=== PATIENT | female | born 1995 | race Caucasian/White ===

== ENCOUNTER 2017-10-09 14:35 | Inpatient (IN) | payer BC ==
[2017-10-09] MEDS ORDERED: PITOCin/NS 30 UNIT/500ML 30,000 MILLIUNITS/500 ML BAG IV ONE (16:09)
[2017-10-09 16:31] LABS: Basophils % (Auto) 0.3 % (0.0-1.8); Eosinophils % (Auto) 0.4 % (0.0-4.3); Hematocrit 32.7 % (30.3-42.9); Hemoglobin 10.8 gm/dl (10.1-14.3); Mean Corpuscular HGB Conc 33 % (30-34); Mean Corpuscular Hemoglobin 26 pg (28-32); Mean Corpuscular Volume 79 fl (79-97); Platelet Count 184 K/mm3 (140-440); Red Blood Count 4.16 M/mm3 (3.65-5.03); Red Cell Distribution Width 14.3 % (13.2-15.2); White Blood Count 6.5 K/mm3 (4.5-11.0)
[2017-10-09] MEDS ORDERED: POLYCILLIN/NS 2 GM/100 ML 2 GM/100 ML BAG IV ONE (17:00)
[2017-10-09] MEDS ORDERED: LACTATED RINGERS 1,000 ML IV SCH (17:00)
[2017-10-09] MEDS ORDERED: LACTATED RINGERS 1,000 ML IV ONE (17:00)
[2017-10-09] MEDS ORDERED: PITOCin/NS 20 UNIT/1000ML DRIP 20 UNITS/1,000 ML BAG IV SCH ×2 (17:00→18:00)
[2017-10-09] MEDS ORDERED: XYLOCAINE 2% INFILTRATI ONE (17:13)
[2017-10-09] MEDS ORDERED: MINERAL OIL PO PRN (17:13)
[2017-10-09] MEDS ORDERED: PHENERGAN PO PRN (17:13)
[2017-10-09] MEDS ORDERED: SUBLIMAZE IV PRN (17:13)
[2017-10-09] MEDS ORDERED: NUBAIN IV PRN (17:13)
[2017-10-09] MEDS ORDERED: ePHEDrine SULFATE IV PRN (17:13)
[2017-10-09] MEDS ORDERED: ZOFRAN IV PRN (17:13)
[2017-10-09] MEDS ORDERED: BRETHINE IVP PRN (17:13)
[2017-10-09] MEDS ORDERED: BRETHINE SUB-Q PRN (17:13)
--- NOTE | 2017-10-09 17:13 | History and Physical Report ---
History of Present Illness Date of examination: 10/09/17 Date of admission: 10/09/17 14:35 Chief complaint: Ruptured membranes History of present illness: 21-year-old at ~ 38 weeks presents with ruptured membranes; she is a [facility] patient. 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 denies: smoking, alcohol abuse, prescription drug abuse, IV drug use - Obstetrical History Expected Date of Delivery: 10/19/17 Actual Gestation: 38 Week(s) 4 Day(s) : 1 Para: 0 Medications and Allergies Allergies Allergy/AdvReac Type Severity Reaction Status Date / Time No Known Allergies Allergy Unverified 10/09/17 14:35 Active Meds: Active Medications Butorphanol Tartrate (Stadol) 2 mg IV Q2H PRN PRN Reason: Labor Pain Lactated Ringer's (Lactated Ringers) 1,000 mls @ 999 mls/hr IV BOLUS ONE Stop: 10/09/17 18:00 Ampicillin Sodium (Polycillin/Ns 2 Gm/100 Ml) 2 gm in 100 mls @ 100 mls/hr IV ONCE ONE Stop: 10/09/17 17:59 Oxytocin/Sodium Chloride (Pitocin/Ns 20 Unit/1000ml Drip) 20 units in 1,000 mls @ 0 mls/hr IV DIRECT KVNG PRN Reason: As Directed Ampicillin Sodium (Polycillin/Ns 1 Gm/50 Ml) 1 gm in 50 mls @ 100 mls/hr IV Q4H KVNG PRN Reason: Protocol Lactated Ringer's (Lactated Ringers) 1,000 mls @ 125 mls/hr IV DIRECT KVNG Review of Systems Constitutional: no fever, no chills, no sweats, no fatigue, no weakness, no chronic headaches Cardiovascular: no chest pain, no orthopnea, no palpitations, no syncope, no lightheadedness, no shortness of breath, no dyspnea on exertion, no high blood pressure, no decreased exercise tolerance Respiratory: no cough, no cough with sputum, no shortness of breath, no dyspnea on exertion Gastrointestinal: no nausea, no vomiting, no heartburn Genitourinary: leakage of fluid, contractions, no vaginal bleeding, no vaginal discharge - Physical Exam Cardiovascular: Regular rate, Normal S1, Normal S2 Lungs: Positive: Clear to auscultation, Normal air movement Abdomen: Positive: normal appearance, soft. Negative: distention, tenderness, guarding, rigidity Genitourinary (Female): Positive: normal external genitalia Uterus: Positive: enlarged (EFW ~ 3500). Negative: tender Extremities: Positive: normal - Obstetrical FHR: category 1 Cervical Dilatation: 2 (Per RN) Results Result Diagrams: 10/09/17 15:05 Abnormal lab results 10/09/17 Range/Units 15:05 MCH 26 L (28-32) pg [place] % (Auto) 7.8 H (0.0-7.3) % Seg Neutrophils % 73.1 H (40.0-70.0) % All other labs normal. Assessment and Plan A: 21-year-old at 38 weeks with ruptured membranes -cat 1 tracing P: -Admit -Routine care -Epidural when necessary -GBS prophylaxis -Anticipate normal vaginal delivery - Patient Problems (1) 38 weeks gestation of Current Visit: Yes Status: Acute (2) Spontaneous rupture of amniotic membranes Current Visit: Yes Status: Acute
[2017-10-09] MEDS ORDERED: PITOCin/NS 30 UNIT/500ML 30 UNITS/500 ML BAG IV SCH ×2 (18:00)
[2017-10-09] MEDS: POLYCILLIN/NS 1 GM/50 ML 1 GM/50 ML BAG IV SCH (21:00)
[2017-10-09] MEDS ORDERED: POLYCILLIN/NS 1 GM/50 ML 1 GM/50 ML BAG IV SCH (21:14)
[2017-10-09] MEDS: LACTATED RINGERS 1,000 ML IV SCH (22:36)
[2017-10-09] MEDS: STADOL IV PRN (23:46)
[2017-10-10] MEDS: POLYCILLIN/NS 1 GM/50 ML 1 GM/50 ML BAG IV SCH ×2 (01:00→05:09)
[2017-10-10] MEDS: STADOL IV PRN (02:36)
[2017-10-10] MEDS ORDERED: ePHEDrine SULFATE ONE (03:47)
[2017-10-10] MEDS ORDERED: NARCAN 2 MG/2 ML IV PRN (04:18)
[2017-10-10] MEDS ORDERED: ePHEDrine SULFATE IV PRN (04:18)
--- NOTE | 2017-10-10 04:18 | Anesthesia Consultation ---
Anesthesia Consult and Med Hx Date of service: 10/10/17 - Airway Anesthetic Teeth Evaluation: Good ROM Head & Neck: Adequate Mental/Hyoid Distance: Adequate Mallampati Class: Class II Intubation Access Assessment: Probably Good - Pulmonary Exam CTA: Yes - Cardiac Exam Cardiac Exam: RRR - Pre-Operative Health Status ASA Pre-Surgery Classification: ASA2 Proposed Anesthetic Plan: Epidural, Spinal - Pulmonary Hx Asthma: No COPD: No Hx Pneumonia: No - Cardiovascular System Hx Hypertension: No - Central Nervous System Hx Seizures: No Hx Psychiatric Problems: No - Endocrine Hx Renal Disease: No Hx End Stage Renal Disease: No Hx Hypothyroidism: No Hx Hyperthyroidism: No - Hematic Hx Anemia: No Hx Sickle Cell Disease: No - Other Systems Hx Alcohol Use: No - Additional Comments Anesthesia Medical History Comments: IUP
--- NOTE | 2017-10-10 04:42 | Progress Note ---
Assessment and Plan - Patient Problems (1) 38 weeks gestation of Current Visit: Yes Status: Acute (2) Spontaneous rupture of amniotic membranes Current Visit: Yes Status: Acute Subjective - Subjective Date of service: 10/10/17 Interval history: Patient currently 9.5/100/-1 station Patient reports: new complaints, movement normal, contractions Objective - Vital Signs Vital Signs: Vital Signs - 12hr 10/09/17 10/09/17 10/09/17 19:18 19:23 23:46 Temperature 97.5 F L Pulse Rate 80 80 Respiratory 12 18 Rate Blood Pressure 100/61 Blood Pressure 100/60 [Left] O2 Sat by Pulse Oximetry 10/10/17 10/10/17 10/10/17 02:36 03:12 03:16 Temperature Pulse Rate 38 L 99 H Respiratory 14 Rate Blood Pressure Blood Pressure [Left] O2 Sat by Pulse 77 L 94 Oximetry 10/10/17 10/10/17 10/10/17 03:17 03:23 03:28 Temperature Pulse Rate 103 H 111 H 112 H Respiratory Rate Blood Pressure Blood Pressure [Left] O2 Sat by Pulse 95 94 91 Oximetry 10/10/17 10/10/17 10/10/17 03:29 03:33 03:34 Temperature Pulse Rate 107 H 111 H 101 H Respiratory Rate Blood Pressure Blood Pressure [Left] O2 Sat by Pulse 90 94 93 Oximetry 10/10/17 10/10/17 10/10/17 03:38 03:41 03:43 Temperature Pulse Rate 102 H 107 H 105 H Respiratory Rate Blood Pressure Blood Pressure [Left] O2 Sat by Pulse 93 87 100 Oximetry 10/10/17 10/10/17 10/10/17 03:46 03:48 03:51 Temperature Pulse Rate 98 H 95 H 50 L Respiratory Rate Blood Pressure Blood Pressure [Left] O2 Sat by Pulse 94 95 84 Oximetry 10/10/17 10/10/17 10/10/17 03:53 03:54 03:56 Temperature Pulse Rate 107 H 107 H 109 H Respiratory Rate Blood Pressure 124/70 109/71 Blood Pressure [Left] O2 Sat by Pulse 96 Oximetry 10/10/17 10/10/17 10/10/17 03:57 03:58 04:00 Temperature Pulse Rate 90 110 H 95 H Respiratory Rate Blood Pressure 137/81 123/78 Blood Pressure [Left] O2 Sat by Pulse 94 97 Oximetry 10/10/17 10/10/17 10/10/17 04:02 04:03 04:04 Temperature Pulse Rate 76 90 Respiratory Rate Blood Pressure 121/61 Blood Pressure [Left] O2 Sat by Pulse 81 L 82 L Oximetry 10/10/17 10/10/17 10/10/17 04:06 04:08 04:09 Temperature Pulse Rate 115 H 94 H 104 H Respiratory Rate Blood Pressure 118/70 135/73 Blood Pressure [Left] O2 Sat by Pulse 99 Oximetry 10/10/17 10/10/17 10/10/17 04:10 04:12 04:13 Temperature Pulse Rate 104 H 83 93 H Respiratory Rate Blood Pressure 113/69 120/74 Blood Pressure [Left] O2 Sat by Pulse 93 Oximetry 10/10/17 10/10/17 10/10/17 04:14 04:16 04:18 Temperature Pulse Rate 100 H 80 71 Respiratory Rate Blood Pressure 128/80 125/73 125/71 Blood Pressure [Left] O2 Sat by Pulse 67 L Oximetry 10/10/17 10/10/17 10/10/17 04:20 04:22 04:23 Temperature Pulse Rate 83 100 H 117 H Respiratory Rate Blood Pressure 111/62 107/60 Blood Pressure [Left] O2 Sat by Pulse 97 Oximetry 10/10/17 10/10/17 10/10/17 04:24 04:26 04:28 Temperature Pulse Rate 150 H 127 H 150 H Respiratory Rate Blood Pressure 88/50 93/51 84/49 Blood Pressure [Left] O2 Sat by Pulse 100 Oximetry 10/10/17 10/10/17 10/10/17 04:30 04:32 04:33 Temperature Pulse Rate 116 H 141 H 119 H Respiratory Rate Blood Pressure 96/62 94/67 Blood Pressure [Left] O2 Sat by Pulse 97 Oximetry 10/10/17 10/10/17 10/10/17 04:34 04:36 04:38 Temperature Pulse Rate 122 H 127 H 114 H Respiratory Rate Blood Pressure 125/73 118/70 120/71 Blood Pressure [Left] O2 Sat by Pulse 98 Oximetry 10/10/17 10/10/17 10/10/17 04:40 04:42 04:43 Temperature Pulse Rate 126 H 103 H 121 H Respiratory Rate Blood Pressure 121/73 117/76 Blood Pressure [Left] O2 Sat by Pulse 99 Oximetry - Exam FHR: category 1 Cervical Dilatation: 9.5 station: -1 - Labs Labs: Abnormal Labs 10/09/17 15:05 MCH 26 L [place] % (Auto) 7.8 H Seg Neutrophils % 73.1 H Laboratory Results - last 24 hr 10/09/17 10/09/17 15:05 15:05 WBC 6.5 RBC 4.16 Hgb 10.8 Hct 32.7 MCV 79 MCH 26 L MCHC 33 RDW 14.3 Plt Count 184 Lymph % (Auto) 18.4 [place] % (Auto) 7.8 H Eos % (Auto) 0.4 Baso % (Auto) 0.3 Lymph # 1.2 [place] # 0.5 Eos # 0.0 Baso # 0.0 Seg Neutrophils % 73.1 H Seg Neutrophils # 4.7 Blood Type O POSITIVE Antibody Screen Negative
[2017-10-10] MEDS: LACTATED RINGERS 1,000 ML IV SCH (04:50)
[2017-10-10] MEDS ORDERED: fentaNYL-BUPIV 2 MCG/ML-0.125% 200 MCG/100 ML BAG EPIDURAL SCH (05:00)
--- NOTE | 2017-10-10 05:28 | Progress Note ---
Assessment and Plan - Patient Problems (1) 38 weeks gestation of Current Visit: Yes Status: Acute (2) Spontaneous rupture of amniotic membranes Current Visit: Yes Status: Acute Subjective - Subjective Date of service: 10/10/17 Interval history: Patient now station Patient reports: new complaints, movement normal, contractions Objective - Vital Signs Vital Signs: Vital Signs - 12hr 10/09/17 10/09/17 10/09/17 19:18 19:23 23:46 Temperature 97.5 F L Pulse Rate 80 80 Respiratory 12 18 Rate Blood Pressure 100/61 Blood Pressure 100/60 [Left] O2 Sat by Pulse Oximetry 10/10/17 10/10/17 10/10/17 02:36 03:12 03:16 Temperature Pulse Rate 38 L 99 H Respiratory 14 Rate Blood Pressure Blood Pressure [Left] O2 Sat by Pulse 77 L 94 Oximetry 10/10/17 10/10/17 10/10/17 03:17 03:23 03:28 Temperature Pulse Rate 103 H 111 H 112 H Respiratory Rate Blood Pressure Blood Pressure [Left] O2 Sat by Pulse 95 94 91 Oximetry 10/10/17 10/10/17 10/10/17 03:29 03:33 03:34 Temperature Pulse Rate 107 H 111 H 101 H Respiratory Rate Blood Pressure Blood Pressure [Left] O2 Sat by Pulse 90 94 93 Oximetry 10/10/17 10/10/17 10/10/17 03:38 03:41 03:43 Temperature Pulse Rate 102 H 107 H 105 H Respiratory Rate Blood Pressure Blood Pressure [Left] O2 Sat by Pulse 93 87 100 Oximetry 10/10/17 10/10/17 10/10/17 03:46 03:48 03:51 Temperature Pulse Rate 98 H 95 H 50 L Respiratory Rate Blood Pressure Blood Pressure [Left] O2 Sat by Pulse 94 95 84 Oximetry 10/10/17 10/10/17 10/10/17 03:53 03:54 03:56 Temperature Pulse Rate 107 H 107 H 109 H Respiratory Rate Blood Pressure 124/70 109/71 Blood Pressure [Left] O2 Sat by Pulse 96 Oximetry 10/10/17 10/10/17 10/10/17 03:57 03:58 04:00 Temperature Pulse Rate 90 110 H 95 H Respiratory Rate Blood Pressure 137/81 123/78 Blood Pressure [Left] O2 Sat by Pulse 94 97 Oximetry 10/10/17 10/10/17 10/10/17 04:02 04:03 04:04 Temperature Pulse Rate 76 90 Respiratory Rate Blood Pressure 121/61 Blood Pressure [Left] O2 Sat by Pulse 81 L 82 L Oximetry 10/10/17 10/10/17 10/10/17 04:06 04:08 04:09 Temperature Pulse Rate 115 H 94 H 104 H Respiratory Rate Blood Pressure 118/70 135/73 Blood Pressure [Left] O2 Sat by Pulse 99 Oximetry 10/10/17 10/10/17 10/10/17 04:10 04:12 04:13 Temperature Pulse Rate 104 H 83 93 H Respiratory Rate Blood Pressure 113/69 120/74 Blood Pressure [Left] O2 Sat by Pulse 93 Oximetry 10/10/17 10/10/17 10/10/17 04:14 04:16 04:18 Temperature Pulse Rate 100 H 80 71 Respiratory Rate Blood Pressure 128/80 125/73 125/71 Blood Pressure [Left] O2 Sat by Pulse 67 L Oximetry 10/10/17 10/10/17 10/10/17 04:20 04:22 04:23 Temperature Pulse Rate 83 100 H 117 H Respiratory Rate Blood Pressure 111/62 107/60 Blood Pressure [Left] O2 Sat by Pulse 97 Oximetry 10/10/17 10/10/17 10/10/17 04:24 04:26 04:28 Temperature Pulse Rate 150 H 127 H 150 H Respiratory Rate Blood Pressure 88/50 93/51 84/49 Blood Pressure [Left] O2 Sat by Pulse 100 Oximetry 10/10/17 10/10/17 10/10/17 04:30 04:32 04:33 Temperature Pulse Rate 116 H 141 H 119 H Respiratory Rate Blood Pressure 96/62 94/67 Blood Pressure [Left] O2 Sat by Pulse 97 Oximetry 10/10/17 10/10/17 10/10/17 04:34 04:36 04:38 Temperature Pulse Rate 122 H 127 H 114 H Respiratory Rate Blood Pressure 125/73 118/70 120/71 Blood Pressure [Left] O2 Sat by Pulse 98 Oximetry 10/10/17 10/10/17 10/10/17 04:40 04:42 04:43 Temperature Pulse Rate 126 H 103 H 121 H Respiratory Rate Blood Pressure 121/73 117/76 Blood Pressure [Left] O2 Sat by Pulse 99 Oximetry 1110/10/17 10/10/17 04:44 04:46 04:48 Temperature Pulse Rate 112 H 112 H 113 H Respiratory Rate Blood Pressure 120/78 127/80 122/75 Blood Pressure [Left] O2 Sat by Pulse 100 Oximetry 10/10/17 10/10/17 10/10/17 04:50 04:52 04:53 Temperature Pulse Rate 109 H 100 H 98 H Respiratory Rate Blood Pressure 120/77 115/67 Blood Pressure [Left] O2 Sat by Pulse 100 Oximetry 10/10/17 10/10/17 10/10/17 04:58 05:03 05:08 Temperature Pulse Rate 100 H 100 H 112 H Respiratory Rate Blood Pressure Blood Pressure [Left] O2 Sat by Pulse 100 100 100 Oximetry 10/10/17 10/10/17 10/10/17 05:13 05:18 05:23 Temperature Pulse Rate 116 H 111 H 91 H Respiratory Rate Blood Pressure Blood Pressure [Left] O2 Sat by Pulse 100 100 99 Oximetry 10/10/17 10/10/17 05:24 05:28 Temperature Pulse Rate 98 H 89 Respiratory Rate Blood Pressure 109/66 Blood Pressure [Left] O2 Sat by Pulse 99 Oximetry - Exam FHR: category 1 Cervical Dilatation: 10 station: +1 - Labs Labs: Abnormal Labs 10/09/17 15:05 MCH 26 L [facility] % (Auto) 7.8 H Seg Neutrophils % 73.1 H Laboratory Results - last 24 hr 10/09/17 10/09/17 15:05 15:05 WBC 6.5 RBC 4.16 Hgb 10.8 Hct 32.7 MCV 79 MCH 26 L MCHC 33 RDW 14.3 Plt Count 184 Lymph % (Auto) 18.4 [facility] % (Auto) 7.8 H Eos % (Auto) 0.4 Baso % (Auto) 0.3 Lymph # 1.2 [facility] # 0.5 Eos # 0.0 Baso # 0.0 Seg Neutrophils % 73.1 H Seg Neutrophils # 4.7 Blood Type O POSITIVE Antibody Screen Negative
--- NOTE | 2017-10-10 07:37 | Event Note ---
Date: 10/10/17 Just assumed care of patient. Patient is completely dilated and head is at +1 station with small caput. FHR baseline 170-175 with minimal variability and variable FHR decelerations. Patient positioned in lateral position. O2 per face mask at 10 LPM and IV fluid bolus given. Patient is afebrile. No foul smelling discharge. Patient has received 4 doses of Ampicillin during this labor per RN report. Will allow patient to push to expedite delivery. Consulted with Dr. Anderson regarding patient and let her know about tachycardia, decreased variability and variable FHR decelerations. Dr. Anderson states to allow patient to push and she states she is on her way to the hospital to see the patient.
--- NOTE | 2017-10-10 08:59 | Procedure Note ---
OB Delivery Note - Vaginal Delivery presentation: vertex Delivery position: OA Intrapartum events: other(please specify) (mild tachycardia (resolved prior to delivery)) Delivery induction: none Delivery augmentation: pitocin Delivery monitor: external FHT, external uterine Route of delivery: Delivery placenta: spontaneous Delivery cord: nuchal cord Episiotomy: none Delivery laceration: none Anesthesia: epidural Delivery comments: Spontaneous vaginal delivery of liveborn female infant in OA position over intact perineum with apgars of 7 and 8. Baby's weight was 6 lbs. Baby delivered easily and was placed on maternal abdomen immediately after delivery. Spontaneous cry and respirations. 3 vessel cord double clamped and cut after cessation of pulsation. Baby taken to radiant warmer for suctioning and further stimulation. Spontaneous delivery of intact placenta and membranes by noel mechanism. EBL 250 ml. Pitocin to IV fluids after delivery of placenta. Fundus firm and midline. No lacerations noted. Vaginal sweep negative. Sponge count correct. Mother and baby stable in birthing room. Placenta to path.
[2017-10-10] MEDS ORDERED: LANSINOH TP PRN (09:00)
[2017-10-10] MEDS ORDERED: TUCKS PAD TP PRN (09:00)
[2017-10-10] MEDS ORDERED: SODIUM CHLORIDE FLUSH SYRINGE 10 ML IV PRN (09:30)
[2017-10-10] MEDS ORDERED: NORCO 5/325 PO PRN (09:30)
[2017-10-10] MEDS ORDERED: Fluarix Quad 2017-2018(36 MOS+ IM ONE (12:00)
[2017-10-10] MEDS: MOTRIN PO SCH ×2 (12:07→23:15)
[2017-10-10] MEDS ORDERED: DERMOPLAST TP PRN (12:30)
[2017-10-10] MEDS ORDERED: MILK OF MAGNESIA PO PRN (22:00)
[2017-10-11] MEDS ORDERED: BOOSTRIX IM ONE (06:00)
[2017-10-11] MEDS: MOTRIN PO SCH ×3 (06:05→18:33)
[2017-10-11 06:24] LABS: Hematocrit 23.9 % (30.3-42.9)
[2017-10-11] MEDS: FEOSOL PO SCH ×2 (08:27→15:12)
--- NOTE | 2017-10-11 09:46 | Progress Note ---
Subjective Date of service: 10/11/17 Interval history: Patient denies headache. No other anesthetic related complaints. Objective - Constitutional Vitals: Vital Signs - 12hr 10/11/17 00:00 Temperature 98.5 F Pulse Rate 76 Respiratory 18 Rate Blood Pressure 95/58 [Left] - Labs CBC & Chem 7: 10/11/17 05:54 Labs: Abnormal lab results 10/11/17 Range/Units 05:54 Hgb 8.0 L (10.1-14.3) gm/dl Hct 23.9 L D (30.3-42.9) %
[2017-10-11] MEDS ORDERED: Fluarix Quad 2017-2018(36 MOS+ IM ONE (12:20)
--- NOTE | 2017-10-11 15:21 | Progress Note ---
Assessment and Plan A: day 1 S/P spontaneous vaginal delivery. Anemia, not symptomatic. P: Supplement with Ferrous Sulfate for anemia. Anticipate discharge tomorrow afternoon when baby is able to go home. Subjective - Subjective Date of service: 10/11/17 Principal diagnosis: day 1 S/P spontaneous vaginal delivery Interval history: Doing well. Ambulating well and voiding without difficulty. Tolerating a regular diet without nausea and vomiting. Patient denies headache, dizziness, leg pain, abdominal pain, heavy vaginal bleeding, or any other symptoms. Patient reports: appetite normal, voiding normally, pain well controlled, ambulating normally [place]: doing well Objective - Vital Signs Latest vital signs: Vital Signs Temp Pulse Resp BP BP Pulse Ox 10/11/17 08:25 97.7 F 69 18 93/60 99 10/11/17 00:00 98.5 F 76 18 95/58 10/10/17 21:10 98.6 F 73 18 91/63 10/10/17 16:36 98.2 F 66 18 102/64 97 Intake and Output 10/10/17 10/11/17 10/11/17 23:59 07:59 15:59 Intake Total 240 240 Output Total 300 Balance -60 240 Intake: Oral 240 240 Output: Urine 300 Void 300 Other: Total, Intake Amount 240 120 Total, Output Amount 300 # Voids Void 1 1 - Exam Cardiovascular: Present: Regular rate, Normal S1, Normal S2 Lungs: Present: Clear to auscultation Abdomen: Present: normal appearance, soft. Absent: distention, tenderness, guarding, rigidity Uterus: Present: normal, firm, fundal height below umbilicus. Absent: tenderness Extremities: Present: normal. Absent: tenderness, edema - Labs Labs: Abnormal lab results 10/11/17 Range/Units 05:54 Hgb 8.0 L (10.1-14.3) gm/dl Hct 23.9 L D (30.3-42.9) %
--- NOTE | 2017-10-12 08:57 | Progress Note ---
Assessment and Plan A: day 2 S/P spontaneous vaginal delivery. Anemia. P: Discharge patient home today. Discussed with patient discharge instructions and warning signs. Advised patient to take iron supplement TID and to continue the vitamins she has at home. Rx Ferrous Sulfate and Motrin at [facility] pharmacy on [address]. Advised patient to avoid intercourse, avoid heavy lifting, and avoid driving. Discussed control with patient and options for control discussed. Patient states she will think about this and let us know at her 6 week visit. Advised patient to follow up in clinic in 6 weeks for exam and sooner if she has any problems. Subjective - Subjective Date of service: 10/12/17 Principal diagnosis: day 2 S/P spontaneous vaginal delivery Interval history: day 2 S/P spontaneous vaginal delivery. Patient is doing well and desires discharge today. Patient is . Patient is voiding without difficulty and ambulating well. She is tolerating a regular diet without nausea or vomiting. Patient is undecided regarding contraception; she states she will consider this and let us know at her 6 week check up. Patient denies headache, chest pain, cough, shortness of breath, abdominal pain, leg pain, or heavy vaginal bleeding. Patient reports: appetite normal, voiding normally, pain well controlled, ambulating normally [place]: doing well Objective - Vital Signs Latest vital signs: Vital Signs Temp Pulse Resp BP 10/12/17 00:25 98.3 F 72 18 98/55 10/11/17 16:00 98.6 F 78 16 102/60 Intake and Output 10/11/17 10/12/17 10/12/17 23:59 07:59 15:59 Intake Total 120 120 Balance 120 120 Intake: Oral 120 120 Other: Total, Intake Amount 120 120 # Voids Void 1 1 - Exam Cardiovascular: Present: Regular rate, Normal S1, Normal S2 Lungs: Present: Clear to auscultation Abdomen: Present: normal appearance. Absent: distention, tenderness, guarding, rigidity Uterus: Present: normal, firm, fundal height below umbilicus. Absent: bogginess , tenderness Extremities: Present: normal. Absent: tenderness, edema
--- NOTE | 2017-10-12 08:59 | Discharge Summary ---
Providers - Providers Date of Admission: 10/09/17 14:35 Date of discharge: 10/12/17 Attending physician: MARIA DEL ROSARIO ALCOCER MD None Primary care physician: MARIA DEL ROSARIO ALCOCER MD Hospitalization Reason for admission: rupture of membranes Delivery: Episiotomy: none Laceration: none Other procedures: none complications: none Discharge diagnosis: IUP at term delivered [place] baby: female Condition at discharge: Good Disposition: DC-01 TO HOME OR SELFCARE - Discharge Diagnoses (1) Term delivered Status: Acute Plan - Discharge Medications Prescriptions: HYDROcodone/APAP 5-325 [[place] 5/325] 1 each PO Q6HR PRN #7 tablet PRN Reason: Pain Ibuprofen [Motrin 600 MG tab] 600 mg PO Q8H PRN #30 tablet PRN Reason: Pain Multivitamin with Iron [Multivitamins with Iron] 1 each PO DAILY #30 tablet - Provider Discharge Summary Activity: routine, no sex for 6 weeks, no heavy lifting 4 weeks, no strenuous exercise Diet: routine Instructions: routine Additional instructions: Call your doctor immediately for: * Fever > 100.5 * Heavy vaginal bleeding ( >1 pad per hour) * Severe persistent headache * Shortness of breath * Reddened, hot, painful area to leg or breast - Follow up plan Follow up: MARIA DEL ROSARIO ALCOCER MD [Primary Care Provider] - 6 Weeks
[2017-10-12] MEDS: FEOSOL PO SCH (09:01)
[2017-10-12 12:21] VITALS: BP 130/81
[2017-10-12] MEDS: MOTRIN PO SCH (13:22)
== END 2017-10-12 13:30 | disposition home or self-care (01) | DRG 775 ==
LOC: LD 14:35 → OB 10-10 10:30
PROVIDERS: ADMIT Obstetrics & Gynecology; ATTEND Obstetrics & Gynecology
PROC: 10E0XZZ Delivery of Products of Conception, External Approach (ICD-10-PCS; principal; 2017-10-10)
PROC: 3E0R3BZ Introduction of Anesthetic Agent into Spinal Canal, Percutaneous Approach (ICD-10-PCS; 2017-10-10)
PROC: 00HU33Z Insertion of Infusion Device into Spinal Canal, Percutaneous Approach (ICD-10-PCS; 2017-10-10)
PROC: 3E0234Z Introduction of Serum, Toxoid and Vaccine into Muscle, Percutaneous Approach (ICD-10-PCS; 2017-10-10)
DX: O69.81X0 Labor and delivery complicated by cord around neck, without compression, not applicable or unspecified (principal); Z3A.38 38 weeks gestation of pregnancy; Z37.0 Single live birth; O76 Abnormality in fetal heart rate and rhythm complicating labor and delivery; Z23 Encounter for immunization; O99.824 Streptococcus B carrier state complicating childbirth; O90.81 Anemia of the puerperium; D64.9 Anemia, unspecified
CPT/HCPCS: 36415; 85014; 85018; 85025; 86592; 86850; 86900; 86901; 88307; 90471; 90686; 90715; 99211; G0463; J0290; J0595; J2300; J2590; J7120

== ENCOUNTER 2019-02-04 20:09 | Inpatient (IN) | payer OTHER ==
--- NOTE | 2019-02-04 23:06 | Ultrasound Report ---
PROCEDURE: US OB BPP WO NON-STRESS, US OB FOLLOW UP TECHNIQUE: Sonographic evaluation was performed of the pelvis for biophysical profile and well -being. HISTORY: well being, COMPARISONS: None. FINDINGS: A single, intrauterine is noted; position cephalic. Posterior placenta. Amniotic fluid volume: Amniotic fluid index estimated at 6.7 cm. growth: Biparietal diameter diameter: 8.7 cm; 36 week 2 day Head circumference: 32.7 cm; 37 week 1 day Abdominal circumference: 32.7 cm; 36 week 4 day Femoral length: 7.0 cm; 36 weeks 6 day Estimated weight: 2909 g +/- 431g Cephalic index 1.00 Ultrasound gestational age: 36 week 2 day. Estimated EDC: 03/02/2019. Biophysical profile: breathing movements: 2/2. movements: 2/2 posture and tone: 2/2 Qualitative amniotic fluid volume: 0 Total score for biophysical profile 6/8 heart rate: 143 bpm. IMPRESSION: 1. Biophysical profile 6/8. 2. Mildly decreased Amniotic fluid with estimated amniotic fluid index 6.7 cm (Normal range >7 cm). 3. Estimated weight: 2909 g +/- 431g. This document is electronically signed by Bharat Bennett DO., February 04 2019 11:03:14 PM ET
[2019-02-05] MEDS ORDERED: BRETHINE IVP PRN (01:16)
[2019-02-05] MEDS ORDERED: AMPICILLIN/NS 2 GM/100 ML 2 GM/100 ML BAG IV ONE (01:16)
[2019-02-05] MEDS ORDERED: ZOFRAN IV PRN ×2 (01:16→08:30)
[2019-02-05] MEDS ORDERED: NARCAN 0.4 MG/1 ML IV PRN (01:16)
[2019-02-05] MEDS ORDERED: BRETHINE SUB-Q PRN (01:16)
[2019-02-05] MEDS ORDERED: MINERAL OIL PO PRN (01:16)
[2019-02-05] MEDS ORDERED: PHENERGAN PO PRN ×2 (01:16→08:30)
[2019-02-05 01:19] LABS: Hematocrit 28.8 % (30.3-42.9); Hemoglobin 9.6 gm/dl (10.1-14.3); Mean Corpuscular HGB Conc 33 % (30-34); Mean Corpuscular Volume 78 fl (79-97); Platelet Count 177 K/mm3 (140-440); Red Cell Distribution Width 14.5 % (13.2-15.2)
--- NOTE | 2019-02-05 01:33 | History and Physical Report ---
History of Present Illness Date of examination: 02/05/19 Date of admission: 02/05/19 00:29 Chief complaint: Decreased FM and advanced dilatation (4-5cm); Sent from office History of present illness: 23yo KOBE 02/04/2019 ([place]) 40w0d, sent from [facility] for decreased FM and advanced dilatation (4-5cm). Pt initiated late care 15weeks 5days. She was prescribed Vit D and FeS04 325mg QD. She was evaluated for a arrhythmia which resolved. Otherwise her has been uncomplicated. labs: 0 positive, Rubella Immune, VDRl non-reactive, HIV Negative, HBsAg Negative, GC/CL/Trich negative, GBS positive. Past History Past Medical History: no pertinent history Past Surgical History: other (Breast Cyst removed from left breast) [employer]OTIVE TECHNICIAN History: denies: abnormal PAP smear, chlamydia, gonorrhea, hepatitis B, hepatitis C, herpes, HIV, syphilis, trichomonas Family/Genetic History: none Social history: no significant social history, single, lives with family, full code. denies: smoking, alcohol abuse, prescription drug abuse, IV drug use - Obstetrical History Expected Date of Delivery: 02/04/19 Actual Gestation: 40 Week(s) 1 Day(s) : 3 Para: 2 Hx # Term Pregnancies: 2 Number of Pregnancies: 0 Spontaneous Abortions: 0 Induced : 0 Number of Living Children: 2 Medications and Allergies Allergies Allergy/AdvReac Type Severity Reaction Status Date / Time No Known Allergies Allergy Verified 12/26/18 23:32 Home Medications Medication Instructions Recorded Confirmed Last Taken Type HYDROcodone/APAP 5-325 [[place] 1 each PO Q6HR PRN #7 tablet 10/10/17 Unknown Rx 5/325] Ibuprofen [Motrin 600 MG tab] 600 mg PO Q8H PRN #30 tablet 10/10/17 Unknown Rx Multivitamin with Iron 1 each PO DAILY #30 tablet 10/10/17 Unknown Rx [Multivitamins with Iron] Formula Tablet 1 tab PO QDAY MDD 1 10/10/17 10/10/17 10/07/17 08:00 History 1 Active Meds: Active Medications Ephedrine Sulfate (Ephedrine Sulfate) 10 mg IV Q2M PRN PRN Reason: Hypotension Fentanyl (Sublimaze) 100 mcg IV Q2H PRN PRN Reason: Labor Pain Ampicillin Sodium (Polycillin/Ns 2 Gm/100 Ml) 2 gm in 100 mls @ 100 mls/hr IV ONCE ONE; Protocol Stop: 02/05/19 02:15 Lactated Ringer's (Lactated Ringers) 1,000 mls @ 125 mls/hr IV DIRECT KVNG Lidocaine (Xylocaine 2%) 20 ml INFILTRATI ONCE ONE Stop: 02/05/19 01:17 Review of Systems Constitutional: other (denies) Cardiovascular: no chest pain, no shortness of breath Respiratory: no shortness of breath Breasts: normal Gastrointestinal: no abdominal pain, no nausea, no vomiting, no diarrhea, no constipation Genitourinary: normal appearance, no leakage of fluid, no pelvic pain, no xi bakari sores, no contractions Integumentary: no rash, no sores, no lesions Psychiatric: other (denies) Endocrine: other (denies) Hematologic/Lymphatic: other (Anemia; taking FeS04 325mg ) - Vital Signs Vital signs: Vital Signs Temp Pulse Resp BP 98.7 F 72 18 104/64 02/04/19 21:12 02/04/19 21:12 02/04/19 21:12 02/04/19 21:12 Temp Pulse Resp BP Pulse Ox 98.7 F 74 18 104/64 98 02/04/19 21:12 02/05/19 01:18 02/04/19 21:12 02/04/19 21:13 02/05/19 01:18 - Physical Exam Breasts: Positive: normal Cardiovascular: Regular rate, Normal S1, Normal S2, No murmurs Lungs: Positive: Clear to auscultation, Normal air movement Abdomen: Positive: normal appearance, soft, normal bowel sounds. Negative: distention Genitourinary (Female): Positive: normal external genitalia, normal perenium Vulva: both: normal Vagina: Positive: normal moisture Uterus: Positive: enlarged Anus/Rectum: Positive: normal perianal skin Extremities: Positive: normal Deep Tendon Reflex Grade: Normal +2 - Obstetrical FHR: category 1 Uterine Contraction Monitor Mode: External Cervical Dilatation: 6.5 (Buldging BOW) Cervical Effacement Percentage: 90 station: -2 Uterine Contraction Pattern: Regular Uterine Tone Measurement Phase: Resting Uterine Contraction Intensity: Mild Results Result Diagrams: 02/05/19 01:00 Abnormal lab results 03/08/19 Range/Units 01:00 Hgb 9.6 L (10.1-14.3) gm/dl Hct 28.8 L (30.3-42.9) % MCV 78 L (79-97) fl MCH 26 L (28-32) pg All other labs normal. Assessment and Plan A: Term IUP at 40w0d Oligohydramnios; SHANT 6.7 BPP 6/8 Catgory 1 tracing GBS positive P: Admit to L&D; Routine labor orders GBS prophylaxis IV pain med/epidural PRN Anticipate
[2019-02-05] MEDS ORDERED: XYLOCAINE 2% INFILTRATI ONE (01:46)
[2019-02-05] MEDS ORDERED: PITOCin/NS 30 UNIT/500ML 30 UNITS/500 ML BAG IV SCH (02:00)
[2019-02-05] MEDS ORDERED: PITOCin/NS 20 UNIT/1000ML DRIP 20 UNITS/1,000 ML BAG IV SCH (02:00)
[2019-02-05] MEDS: LACTATED RINGERS 1,000 ML IV SCH ×2 (02:34→05:45)
[2019-02-05] MEDS: SUBLIMAZE IV PRN ×2 (03:05→05:10)
--- NOTE | 2019-02-05 05:40 | Progress Note ---
Assessment and Plan A: Term IUP at 40w0d Catgory 1 tracing GBS positive SVE 10/100/0 Pt complete. Attempted pushing (moderate effort), no decent. Severe anxiety, which lead to panic attack and hyperventilation. Pt positioned to far right lateral. O2 applied via nonrebreather mask. Fentanyl 100mcg IVP. VSS throughout. P: Routine labor orders Pt to rest and labor down Epidural Anticiapte Subjective - Subjective Date of service: 02/05/19 Principal diagnosis: active labor Interval history: 23yo KOBE 02/04/2019 ([place]) 40w0d, [facility] from [facility] for decreased FM and advanced dilatation (4-5cm). Pt initiated late care 15weeks 5days. She was prescribed Vit D and FeS04 325mg QD. She was evaluated for a arrhythmia which resolved. Otherwise her has been uncomplicated. labs: 0 positive, Rubella Immune, VDRl non-reactive, HIV Negative, HBsAg Negative, GC/CL/Trich negative, GBS positive. Patient reports: vaginal bleeding, movement normal, contractions (pain 10/10) Objective - Vital Signs Vital Signs: Vital Signs - 12hr 02/04/19 02/04/19 02/05/19 21:12 21:13 00:48 Temperature 98.7 F Pulse Rate 72 72 78 Respiratory 18 Rate Blood Pressure 104/64 Blood Pressure 104/64 [Left] O2 Sat by Pulse 98 Oximetry 02/05/19 02/05/19 02/05/19 00:53 00:58 01:03 Temperature Pulse Rate 77 82 75 Respiratory Rate Blood Pressure Blood Pressure [Left] O2 Sat by Pulse 98 98 99 Oximetry 02/05/19 02/05/19 02/05/19 01:08 01:13 01:18 Temperature Pulse Rate 69 75 74 Respiratory Rate Blood Pressure Blood Pressure [Left] O2 Sat by Pulse 96 98 98 Oximetry 02/05/19 02/05/19 02/05/19 01:23 01:28 01:33 Temperature Pulse Rate 71 71 74 Respiratory Rate Blood Pressure Blood Pressure [Left] O2 Sat by Pulse 98 98 98 Oximetry 02/05/19 02/05/19 02/05/19 01:38 01:43 01:48 Temperature Pulse Rate 78 74 78 Respiratory Rate Blood Pressure Blood Pressure [Left] O2 Sat by Pulse 98 99 98 Oximetry 02/05/19 02/05/19 02/05/19 01:53 01:58 02:03 Temperature Pulse Rate 69 68 73 Respiratory Rate Blood Pressure Blood Pressure [Left] O2 Sat by Pulse 99 99 99 Oximetry 02/05/19 02/05/19 02/05/19 02:08 02:13 02:18 Temperature Pulse Rate 66 64 72 Respiratory Rate Blood Pressure Blood Pressure [Left] O2 Sat by Pulse 98 99 98 Oximetry 02/05/19 02/05/19 02/05/19 02:23 02:28 02:29 Temperature Pulse Rate 69 66 65 Respiratory Rate Blood Pressure 93/53 Blood Pressure [Left] O2 Sat by Pulse 98 98 Oximetry 02/05/19 02/05/19 02/05/19 02:33 02:38 02:39 Temperature 98.0 F Pulse Rate 70 66 64 Respiratory 18 Rate Blood Pressure Blood Pressure [Left] O2 Sat by Pulse 99 98 Oximetry 02/05/19 02/05/19 02/05/19 02:40 02:43 02:48 Temperature Pulse Rate 70 71 74 Respiratory Rate Blood Pressure 98/59 Blood Pressure [Left] O2 Sat by Pulse 97 98 Oximetry 02/05/19 02/05/19 02/05/19 03:05 03:30 04:29 Temperature Pulse Rate 72 86 Respiratory 22 Rate Blood Pressure 103/59 128/97 Blood Pressure [Left] O2 Sat by Pulse Oximetry 02/05/19 02/05/19 02/05/19 05:06 05:10 05:11 Temperature Pulse Rate 71 Respiratory 30 H Rate Blood Pressure Blood Pressure [Left] O2 Sat by Pulse 100 97 Oximetry 02/05/19 02/05/19 02/05/19 05:12 05:13 05:16 Temperature Pulse Rate 76 81 75 Respiratory Rate Blood Pressure 104/55 Blood Pressure [Left] O2 Sat by Pulse 94 100 Oximetry - Exam Breasts: normal Cardiovascular: Regular rate, Normal S1, Normal S2 Lungs: Clear to auscultation, Other (panic attack, hyperventilation) Abdomen: Present: normal appearance, soft Vulva: both: normal Uterus: Present: other (gravid) FHR: category 1 Uterine Contraction Monitor Mode: External Cervical Dilatation: 10 Cervical Effacement Percentage: 10 station: 0 Uterine Contraction Frequency (min): 2-3 Uterine Contraction Duration: 60-90 Uterine Contraction Pattern: Regular Uterine Tone Measurement Phase: Resting Uterine Contraction Intensity: Strong/Firm Extremities: normal Deep Tendon Reflex Grade: Normal +2 - Labs Labs: Abnormal Labs 02/05/19 01:00 Hgb 9.6 L Hct 28.8 L MCV 78 L MCH 26 L Laboratory Results - last 24 hr 02/05/19 02/05/19 00:18 01:00 WBC 7.0 RBC 3.70 Hgb 9.6 L Hct 28.8 L MCV 78 L MCH 26 L MCHC 33 RDW 14.5 Plt Count 177 Blood Type O POSITIVE Antibody Screen Negative
[2019-02-05] MEDS ORDERED: LIDOCAINE 1.5%/EPI 1:200,000 INFILTRATI ONE (06:15)
[2019-02-05] MEDS ORDERED: NARCAN 2 MG/2 ML IV PRN (06:35)
[2019-02-05] MEDS ORDERED: AMPICILLIN/NS 1 GM/50 ML 1 GM/50 ML BAG ONE (06:38)
[2019-02-05] MEDS ORDERED: fentaNYL-BUPIV 2 MCG/ML-0.125% 200 MCG/100 ML BAG EPIDURAL SCH (07:00)
[2019-02-05] MEDS ORDERED: AMPICILLIN/NS 1 GM/50 ML 1 GM/50 ML BAG IV SCH (07:00)
--- NOTE | 2019-02-05 08:19 | Procedure Note ---
OB Delivery Note - Delivery Date of Delivery: 02/05/19 (07:35) Surgeon: KENDAL COMBS (CNM) Estimated blood loss: 100cc - Vaginal Delivery presentation: vertex Delivery position: OA Intrapartum events: mult.variable deceleratio, other(please specify) (Anxiety attack, hyperventilation) Delivery induction: oxytocin Delivery augmentation: rupture of membranes Delivery monitor: external FHT, external uterine Route of delivery: (07:35) Delivery placenta: spontaneous (07:42) Delivery cord: 3 umbilical vessels Episiotomy: none Delivery laceration: none Anesthesia: intravenous, epidural (at 10/100/+1) Delivery comments: Pt pushed for over an hour with minimal change and descent. Proceeded to have anxiety attack with hyperventilation. Pt then positioned to far right lateral, oxygen via non-rebreather mask applied. Fentanyl 100Mcg IVP. Epidural placed and pt then comfortable. Nurse delivery of infant. To the room (from another delivery) as baby delivered. placed [id number] on mothers abdomen. Strong lusty cry. Delayed cord clamping then cut by FOB with my guidance. Cord blood per protocol. Spontaneous noel delivery of intact placenta. 3VC. No tears or lacerations. FF@U-2. Bleeding small. EBL 100cc. Infant and mother left in stable condition in L&D. - A at 1 minute: 8 at 5 minutes: 9 Gender: Male (7lbs 2 oz, 3232 grams, 19.5")
[2019-02-05] MEDS ORDERED: METHERGINE IM ONE (08:22)
[2019-02-05] MEDS ORDERED: TUCKS PAD TP PRN (08:30)
[2019-02-05] MEDS ORDERED: BENADRYL PO PRN (08:30)
[2019-02-05] MEDS ORDERED: TYLENOL PO PRN (08:30)
[2019-02-05] MEDS ORDERED: LANSINOH TP PRN (08:30)
[2019-02-05] MEDS ORDERED: NORCO 5/325 PO PRN (08:30)
[2019-02-05] MEDS ORDERED: SODIUM CHLORIDE FLUSH SYRINGE 10 ML IV PRN (09:00)
[2019-02-05] MEDS ORDERED: IBUPROFEN PO SCH (09:00)
[2019-02-05] MEDS ORDERED: MILK OF MAGNESIA PO PRN (09:00)
[2019-02-05] MEDS ORDERED: DULCOLAX PR PRN (10:00)
[2019-02-05 20:17] LABS: Hematocrit 27.1 % (30.3-42.9)
[2019-02-05] MEDS: IBUPROFEN PO SCH (23:22)
[2019-02-06] MEDS: IBUPROFEN PO SCH ×3 (05:21→17:30)
[2019-02-06] MEDS ORDERED: BOOSTRIX IM ONE (06:00)
--- NOTE | 2019-02-06 11:58 | Progress Note ---
Assessment and Plan A: day 1 S/P spontaneous vaginal delivery. Anemia secondary to and blood loss. P: Repeat H&H today. US to check for retained POC. Encouraged patient to get assistance when ambulating. Supplement with oral iron. Subjective - Subjective Date of service: 02/06/19 Principal diagnosis: day 1 S/P Interval history: day 1 S/P spontaneous vaginal delivery. Patient reports moderate to heavy lochia and states passing clots. Voiding without difficulty. Ambulating well but reports mild dizziness. Tolerating a regular diet. Minimal nausea, no vomiting. Patient denies headache, chest pain, cough, shortness of breath, leg pain, or abdominal pain. Patient reports: appetite normal, voiding normally, dizzy ambulation, pain well controlled, flatus, ambulating normally, nauseated : doing well Objective - Vital Signs Latest vital signs: Vital Signs Temp Pulse Resp BP BP Pulse Ox 02/06/19 10:00 98.6 F 70 20 86/60 02/05/19 23:51 98.1 F 68 14 105/70 98 02/05/19 20:46 98.5 F 70 16 101/70 99 02/05/19 16:24 98.9 F 70 18 100/64 96 Intake and Output 02/05/19 02/06/19 02/06/19 23:59 07:59 15:59 Intake Total 720 120 Balance 720 120 Intake: Oral 360 120 Intake, Free Water 360 Other: Total, Intake Amount 360 120 # Voids Void 3 2 - Exam Cardiovascular: Present: Regular rate, Normal S1, Normal S2 Lungs: Present: Clear to auscultation Abdomen: Present: normal appearance, soft. Absent: distention, tenderness, guarding, rigidity Uterus: Present: normal, firm, fundal height below umbilicus Extremities: Present: normal. Absent: tenderness, edema - Labs Labs: Abnormal lab results 02/05/19 Range/Units 19:43 Hgb 9.0 L (10.1-14.3) gm/dl Hct 27.1 L (30.3-42.9) %
[2019-02-06 12:23] LABS: Hematocrit 23.9 % (30.3-42.9)
--- NOTE | 2019-02-06 13:30 | Ultrasound Report ---
PROCEDURE: US PELVIC LIMITED TECHNIQUE: Transabdominal images of the uterus only were obtained HISTORY: bleeding; check for retained placenta COMPARISONS: None FINDINGS: Uterus measures 17.5 x 8.4 x 13.0 cm. The endometrium is heterogeneous and thickened up to 2.2 cm. No color Doppler flow is seen, however findings are suspicious for retained products of conception IMPRESSION: Thickened endometrium. Findings are suspicious for retained products of conception. This document is electronically signed by Di Caicedo MD., February 06 2019 01:28:42 PM ET
[2019-02-06] MEDS: FEOSOL PO SCH ×2 (14:00→22:29)
--- NOTE | 2019-02-06 16:34 | Event Note ---
Date: 02/06/19 US shows possible retained POC. Patient denies heavy bleeding at this time; dizziness has resolved. Fundus firm and midline. No clots. Methergine po ordered. Consulted with Dr. Hopson re: this patient and he states he agrees with PO Methergine. Will observe closely.
[2019-02-06] MEDS: METHERGINE PO SCH ×2 (17:30→22:29)
[2019-02-07] MEDS: IBUPROFEN PO SCH ×3 (00:46→23:52)
[2019-02-07] MEDS: METHERGINE PO SCH ×3 (05:34→19:00)
[2019-02-07] MEDS: FEOSOL PO SCH ×2 (11:08→21:47)
--- NOTE | 2019-02-07 12:16 | Progress Note ---
Assessment and Plan A: day 2 S/P spontaneous vaginal delivery. Possible retained POC per US; receiving PO Methergine series. Anemia secondary to and blood loss. P: Continue PO Methergine and iron supplementation. Plan to repeat US tomorrow afternoon. Subjective - Subjective Date of service: 02/07/19 Principal diagnosis: day 2 S/P Interval history: day 2 S/P spontaneous vaginal delivery. Patient reports lochia is moderate and she denies clots. She is receiving PO Methergine for possible retained POC. Patient denies dizziness, headache, chest pain, shortness of breath, leg pain, or any other problems. Patient is voiding without difficulty. She is ambulating well. She is tolerating a regular diet without nausea or vomiting. Patient reports: appetite normal, voiding normally, pain well controlled, flatus, ambulating normally, no dizzy ambulation, no nauseated [place]: doing well Objective - Vital Signs Latest vital signs: Vital Signs Temp Pulse Resp BP BP Pulse Ox 02/06/19 23:55 98.1 F 65 15 104/68 98 02/06/19 21:01 72 16 108/71 02/06/19 16:35 98.7 F 82 20 97/65 Intake and Output 02/06/19 02/07/19 02/07/19 22:59 07:59 15:59 Intake Total Output Total Balance Intake: Oral Output: Urine Void Other: Total, Intake Amount Total, Output Amount # Voids Void # Bowel Movements - Exam Cardiovascular: Present: Regular rate, Normal S1, Normal S2 Lungs: Present: Clear to auscultation Abdomen: Present: normal appearance, soft. Absent: distention, tenderness, guarding, rigidity Uterus: Present: normal, firm, fundal height at umbilicus Extremities: Present: normal. Absent: tenderness, edema - Labs Labs: Abnormal lab results 02/06/19 Range/Units 11:58 Hgb 8.0 L (10.1-14.3) gm/dl Hct 23.9 L (30.3-42.9) %
[2019-02-08] MEDS: METHERGINE PO SCH (02:05)
[2019-02-08] MEDS: IBUPROFEN PO SCH (06:44)
--- NOTE | 2019-02-08 14:21 | Progress Note ---
Assessment and Plan - Patient Problems (1) Status post normal vaginal delivery Current Visit: Yes Status: Acute Plan to address problem: PPD 3 - stable Continue routine PP orders Discharge to home later today if Possible Retained products of conception cleared on US (2) Anemia due to blood loss, acute Current Visit: Yes Status: Acute Plan to address problem: Asymptomatic Continue iron therapy (3) Retained products of conception after delivery without hemorrhage Current Visit: Yes Status: Acute Plan to address problem: Asymptomatic - scant bleeding Continue Methergine series Repeat pelvic US pending Subjective - Subjective Date of service: 02/08/19 Principal diagnosis: PPD #3, s/p Interval history: See H&P, OB Progress Note, OB Delivery Procedure Note, 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 Event Note Patient reports: appetite normal, voiding normally, pain well controlled, ambulating normally, no dizzy ambulation : doing well Objective - Vital Signs Latest vital signs: Vital Signs Temp Pulse Resp BP BP Pulse Ox 02/08/19 07:48 97.5 F L 64 18 110/68 98 02/08/19 01:18 98.6 F 77 20 101/63 98 02/07/19 23:52 18 02/07/19 17:52 97.7 F 75 20 107/64 99 Intake and Output 02/07/19 02/08/19 02/08/19 23:59 07:59 15:59 Intake Total 240 720 Balance 240 720 Intake: Oral 480 Intake, Free Water 240 240 Other: Total, Intake Amount 480 # Voids Void 2 2 - Exam Cardiovascular: Present: Regular rate Lungs: Present: Clear to auscultation Abdomen: Present: normal appearance, soft Vulva: both: normal Uterus: Present: normal, firm, fundal height below umbilicus Extremities: Present: normal Comments: scant lochia
--- NOTE | 2019-02-08 15:04 | Ultrasound Report ---
ULTRASOUND PELVIC COMPLETE History: Retained products of conception. Findings: Transabdominal imaging was performed and compared to 02/06/19. The uterus is measures 14 x 8 x 11 cm. The endometrium remains mildly thickened and complex measuring up to 2 cm in maximum thickness. The cervix is unremarkable. The ovaries are normal size, contour and echotexture. No adnexal cyst or mass. No pelvic fluid collection. IMPRESSION: Thickened and complex endometrium as described. No overwhelming change is demonstrated since the exam 2 days ago.
[2019-02-08 17:05] VITALS: BP 109/70
--- NOTE | 2019-02-08 18:42 | Discharge Summary ---
Providers - Providers Date of Admission: 02/05/19 00:29 Date of discharge: 02/08/19 Attending physician: MARIA DEL ROSARIO ALCOCER MD Primary care physician: MARIA DEL ROSARIO ALCOCER MD Hospitalization Reason for admission: active labor, IUP at term Delivery: Episiotomy: none Laceration: none Other procedures: none complications: none Discharge diagnosis: IUP at term delivered Hospital course: Uncomplicated Condition at discharge: Stable Disposition: [place]-01 TO HOME OR SELFCARE - Discharge Diagnoses (1) Status post normal vaginal delivery Status: Acute (2) Anemia due to blood loss, acute Status: Acute Comment: Asymptomatic Continue iron therapy (3) Retained products of conception after delivery without hemorrhage Status: Resolved Plan - Provider Discharge Summary Activity: routine, no sex for 6 weeks, no heavy lifting 4 weeks, no strenuous exercise Diet: routine Instructions: routine Additional instructions: [] Smoking cessation referral if applicable(refer to patient education folder for contact #) [] Refer to [facility] Booklet Call your doctor immediately for: * Fever > 100.5 * Heavy vaginal bleeding ( >1 pad per hour) * Severe persistent headache * Shortness of breath * Reddened, hot, painful area to leg or breast * Drainage or odor from incision. * Keep incision clean and dry at all times and follow doctor's instructions regarding bathing/showering - Follow up plan Follow up: MARIA DEL ROSARIO ALCOCER MD [Primary Care Provider] - 6 Weeks (Follow up at [facility] in 6 weeks for exam) Forms: [facility] Discharge Summary
== END 2019-02-08 17:45 | disposition home or self-care (01) | DRG 774 ==
LOC: TRG 20:09 → LD 02-05 00:29 → OB 02-05 09:30
PROVIDERS: ADMIT Obstetrics & Gynecology; ATTEND Obstetrics & Gynecology
PROC: 10E0XZZ Delivery of Products of Conception, External Approach (ICD-10-PCS; principal; 2019-02-05)
PROC: 3E0R3BZ Introduction of Anesthetic Agent into Spinal Canal, Percutaneous Approach (ICD-10-PCS; 2019-02-05)
PROC: 00HU33Z Insertion of Infusion Device into Spinal Canal, Percutaneous Approach (ICD-10-PCS; 2019-02-05)
PROC: 3E0234Z Introduction of Serum, Toxoid and Vaccine into Muscle, Percutaneous Approach (ICD-10-PCS; 2019-02-06)
DX: O41.03X0 Oligohydramnios, third trimester, not applicable or unspecified (principal); O73.1 Retained portions of placenta and membranes, without hemorrhage; O99.824 Streptococcus B carrier state complicating childbirth; O99.02 Anemia complicating childbirth; O99.344 Other mental disorders complicating childbirth; O76 Abnormality in fetal heart rate and rhythm complicating labor and delivery; F41.9 Anxiety disorder, unspecified; Z3A.40 40 weeks gestation of pregnancy; Z37.0 Single live birth; D62 Acute posthemorrhagic anemia; Z23 Encounter for immunization
CPT/HCPCS: 36415; 76816; 76819; 76856; 76857; 85014; 85018; 85027; 86592; 86850; 86900; 86901; 90471; 90715; G0378; J0290; J2210; J2405; J2590; J3010; J7120